=== PATIENT | male | born 1985 | race Caucasian/White ===

== ENCOUNTER → 2018-02-13 | Outpatient (REF) | payer OTHER ==
[~2018-02-13] MED LIST: AMOX875T2 PO; CLEO150C PO; CLIN150C14 PO; IBUP1TAB6 PO; OXYC15TA76 PO; PERCOCET PO
== END ==
LOC: M LAB REF 10:29
DX: J02.9 Acute pharyngitis, unspecified (principal)

== ENCOUNTER 2018-02-15 02:03 | Inpatient (IN) | payer OTHER ==
[2018-02-15] MEDS ORDERED: ONDANSETRON 4MG/2ML VIAL (J2405) IV (02:15)
[2018-02-15 03:15] LABS: BASO % 0.3 % (0.0-1.0); EOS % 0.2 % (0.0-3.0); HEMATOCRIT 36.4 % (42.0-52.0); HEMOGLOBIN 12.1 g/dl (13.5-17.5); IMMATURE GRANULOCYTE % 0.3 % (0-3.0); LYMPH # 0.8 10^3/uL (1.5-4.5); LYMPH % 6.7 % (24.0-44.0); MEAN CORPUSCULAR HEMOGLOBIN 27.8 pg (27.0-33.0); MEAN CORPUSCULAR HGB CONC 33.2 g/dl (32.0-36.5); MEAN CORPUSCULAR VOLUME 83.7 fl (80.0-96.0); MONO # 0.7 10^3/uL (0.0-0.8); MONO % 5.9 % (0.0-5.0); NEUTROPHILS # 10.4 10^3/uL (1.8-7.7); NEUTROPHILS % 86.6 % (36.0-66.0); PLATELET COUNT, AUTOMATED 164 10^3/uL (150-450); RED BLOOD COUNT 4.35 10^6/uL (4.30-6.10); RED CELL DISTRIBUTION WIDTH 12.7 % (11.5-14.5)
[2018-02-15 03:35] LABS: C REACTIVE PROTEIN QUANTITATIV 6.59 MG/DL (0.00-0.30)
[2018-02-15 03:43] LABS: ERYTHROCYTE SEDIMENTATION RATE 38 mm/hr (0-15)
[2018-02-15] MEDS ORDERED: dexameTHASONE 20 MG/5 ML VIAL (J1100) IV (04:00)
[2018-02-15 04:02] LABS: ALBUMIN/GLOBULIN RATIO 1.25 (1.00-1.93); ALKALINE PHOSPHATASE 87 U/L (45-117); ALT/SGPT 20 U/L (12-78); ANION GAP 8 MEQ/L (8-16); AST/SGOT 26 U/L (7-37); BILIRUBIN,TOTAL 0.8 MG/DL (0.2-1.0); BLOOD UREA NITROGEN 9 MG/DL (7-18); CALCIUM LEVEL 8.6 MG/DL (8.5-10.1); CARBON DIOXIDE LEVEL 28 MEQ/L (21-32); CHLORIDE LEVEL 103 MEQ/L (98-107); CREATININE FOR GFR 1.09 MG/DL (0.70-1.30); GLOMERULAR FILTRATION RATE > 60.0 (>60); GLUCOSE, FASTING 101 MG/DL (70-100); POTASSIUM SERUM 3.8 MEQ/L (3.5-5.1); SODIUM LEVEL 139 MEQ/L (136-145); TOTAL PROTEIN 7.2 GM/DL (6.4-8.2)
[2018-02-15] MEDS: NS 1,000 ML IV ×3 (05:37→23:31)
[2018-02-15] MEDS: CLINDAMYCIN 900 MG in APPROPRIATE DILUENT 1 EA IV ×3 (05:38→20:08)
[2018-02-15] MEDS: ACETAMINOPHEN TAB 650MG DOSE (2X325MG) PO (05:39)
[2018-02-15] MEDS: HEPARIN SOD (PORCINE) 5000 UNITS/ML VIAL SC ×3 (06:21→20:08)
[2018-02-15] MEDS: dexameTHASONE 20 MG/5 ML VIAL (J1100) IV ×2 (06:52→17:35)
[2018-02-15] MEDS: IBUPROFEN 600 MG TAB PO (07:56)
[2018-02-16] MEDS: CLINDAMYCIN 900 MG in APPROPRIATE DILUENT 1 EA IV ×2 (03:22→12:00)
[2018-02-16] MEDS: HEPARIN SOD (PORCINE) 5000 UNITS/ML VIAL SC ×2 (05:03→13:32)
[2018-02-16] MEDS: dexameTHASONE 20 MG/5 ML VIAL (J1100) IV (05:03)
[2018-02-16 05:47] LABS: HEMATOCRIT 33.7 % (42.0-52.0); HEMOGLOBIN 11.3 g/dl (13.5-17.5); MEAN CORPUSCULAR HEMOGLOBIN 27.8 pg (27.0-33.0); MEAN CORPUSCULAR HGB CONC 33.5 g/dl (32.0-36.5); MEAN CORPUSCULAR VOLUME 82.8 fl (80.0-96.0); PLATELET COUNT, AUTOMATED 171 10^3/uL (150-450); RED BLOOD COUNT 4.07 10^6/uL (4.30-6.10); RED CELL DISTRIBUTION WIDTH 12.5 % (11.5-14.5); WHITE BLOOD COUNT 12.7 10^3/uL (4.0-10.0)
[2018-02-16 06:04] LABS: ANION GAP 7 MEQ/L (8-16); BLOOD UREA NITROGEN 15 MG/DL (7-18); C REACTIVE PROTEIN QUANTITATIV 9.46 MG/DL (0.00-0.30); CALCIUM LEVEL 8.3 MG/DL (8.5-10.1); CARBON DIOXIDE LEVEL 25 MEQ/L (21-32); CHLORIDE LEVEL 106 MEQ/L (98-107); CREATININE FOR GFR 0.88 MG/DL (0.70-1.30); GLOMERULAR FILTRATION RATE > 60.0 (>60); GLUCOSE, FASTING 130 MG/DL (70-100); MAGNESIUM LEVEL 1.8 MG/DL (1.8-2.4); SODIUM LEVEL 138 MEQ/L (136-145)
[2018-02-16] MEDS: NS 1,000 ML IV (10:36)
[2018-02-16] MEDS ORDERED: CLINDAMYCIN 150 MG CAP PO ×2 (21:00)
== END 2018-02-16 15:55 | disposition home or self-care (01) | DRG 153 ==
LOC: M ED 02:03 → M ED INP 02:11 → M PED 05:20 → M MSPAV 14:45
PROVIDERS: Internal Medicine
DX: J36 Peritonsillar abscess (principal)

== ENCOUNTER 2018-02-19 12:19 | Day surgery (SDC) | payer OTHER ==
[~2018-02-19] VITALS: Ht 170.2 cm; Wt 65.9 kg
[2018-02-19] VITALS (7 sets, daily range): BP systolic 108–123; BP diastolic 55–70
[~2018-02-19 12:19] MED LIST changes: -AMOX875T2 PO; -CLIN150C14 PO; -IBUP1TAB6 PO; -OXYC15TA76 PO; -PERCOCET PO
[2018-02-19] MEDS ORDERED: NS 1,000 ML IV SCH (12:53)
[2018-02-19] MEDS ORDERED: dexameTHASONE 20 MG/5 ML VIAL (J1100) IV ONE (13:00)
[2018-02-19 13:31] LABS: BASO % 0.2 % (0.0-1.0); EOS % 0.2 % (0.0-3.0); HEMATOCRIT 38.7 % (42.0-52.0); HEMOGLOBIN 13.2 g/dl (13.5-17.5); LYMPH % 7.5 % (24.0-44.0); MEAN CORPUSCULAR HEMOGLOBIN 28.1 pg (27.0-33.0); MEAN CORPUSCULAR HGB CONC 34.1 g/dl (32.0-36.5); MEAN CORPUSCULAR VOLUME 82.3 fl (80.0-96.0); MONO # 0.9 10^3/uL (0.0-0.8); MONO % 6.8 % (0.0-5.0); NEUTROPHILS # 10.9 10^3/uL (1.8-7.7); PLATELET COUNT, AUTOMATED 255 10^3/uL (150-450); WHITE BLOOD COUNT 12.8 10^3/uL (4.0-10.0)
[2018-02-19] MEDS ORDERED: ISOVUE-370 76% 100ML VIAL (Q9967) As Ordered ONE (13:31)
[2018-02-19 13:41] LABS: INR 1.05; PROTHROMBIN TIME 13.8 SECONDS (12.1-14.4)
[2018-02-19 13:55] LABS: ALT/SGPT 58 U/L (12-78); BILIRUBIN,DIRECT 0.1 MG/DL (0.0-0.2); BILIRUBIN,TOTAL 0.6 MG/DL (0.2-1.0); BLOOD UREA NITROGEN 11 MG/DL (7-18); CALCIUM LEVEL 8.9 MG/DL (8.5-10.1); CARBON DIOXIDE LEVEL 29 MEQ/L (21-32); CHLORIDE LEVEL 99 MEQ/L (98-107); CREATININE FOR GFR 1.03 MG/DL (0.70-1.30); GLOMERULAR FILTRATION RATE > 60.0 (>60); GLUCOSE, FASTING 97 MG/DL (70-100); POTASSIUM SERUM 4.1 MEQ/L (3.5-5.1); SODIUM LEVEL 136 MEQ/L (136-145); TOTAL PROTEIN 7.7 GM/DL (6.4-8.2)
[2018-02-19] MEDS ORDERED: CLIN150C14 PO (15:13)
--- NOTE | 2018-02-19 15:14 | REP ---
Soft-tissue neck CT with IV contrast: History: Swelling. Comparison study is from February 14, 2018 done at [facility]. CT contrast dose: 75 ml of intravenous Isovue 370. CT findings: Preliminary digital associate sales radiograph is unremarkable. There is a fairly large left peritonsillar low density area surrounded by contrast enhancement on today's CT. This has increased in size when compared with the CT study done February 14, 2018 and is consistent with a left peritonsillar abscess. The low density area measures 3.1 cm in anteroposterior span by 1.5 cm in medial to lateral dimension by 3.6 cm in oblique craniocaudal span. The hypopharynx is displaced to the right and mildly narrowed. The swelling extends into the level of the vallecula on the left side. The left aryepiglottic fold is edematous and enlarged. No glottic or subglottic airway narrowing is seen. No evidence of adenopathy. No bony destructive lesion. Impression: Findings consistent with enlarging left peritonsillar abscess, 3.1 x 1.5 x 3.6 cm. Electronically Signed by Ankit Price MD 02/19/2018 04:18 P
[2018-02-19] MEDS ORDERED: CLINDAMYCIN 600 MG in APPROPRIATE DILUENT 1 EA IV ONE (15:15)
[2018-02-19] MEDS ORDERED: dexameTHASONE 4 MG/ML 1ML VIAL (J1100) As Ordered ONE (15:21)
[2018-02-19] MEDS ORDERED: PROPOFOL 200 MG/20 ML VIAL As Ordered ONE ×2 (15:21→16:06)
[2018-02-19] MEDS ORDERED: ONDANSETRON 4MG/2ML VIAL (J2405) As Ordered ONE ×2 (15:21→17:03)
[2018-02-19] MEDS ORDERED: ROCURONIUM BROMIDE 50 MG/5 ML VIAL As Ordered ONE ×2 (15:21→16:06)
[2018-02-19] MEDS ORDERED: LIDOCAINE 2% INJ 100 MG/5 ML SDV (FOR ANES.) As Ordered ONE (15:21)
[2018-02-19] MEDS ORDERED: LIDOCAINE W/EPINEPHRINE 1% 20ML VIAL As Ordered ONE (15:50)
[2018-02-19] MEDS ORDERED: CLINDAMYCIN INJ 900MG/6ML VIAL As Ordered ONE (15:50)
[2018-02-19] MEDS ORDERED: OXYMETAZOLINE NASAL SPRAY (AFRIN) As Ordered ONE (15:54)
[2018-02-19] MEDS ORDERED: IBUP1TAB6 PO (16:02)
[2018-02-19] MEDS ORDERED: LIDOCAINE 2% INJ 100 MG/5 ML SYRINGE As Ordered ONE (16:06)
[2018-02-19] MEDS ORDERED: MIDAZOLAM INJ 2 MG/2 ML VIAL (J2250) As Ordered ONE (16:06)
[2018-02-19] MEDS ORDERED: SUCCINYLCHOLINE 100 MG/5 ML SYRINGE (J0330) As Ordered ONE (16:06)
[2018-02-19] MEDS ORDERED: fentaNYL 100 MCG/2 ML INJECTION (J3010) As Ordered ONE ×2 (16:06→16:25)
[2018-02-19] MEDS ORDERED: PERCOCET 5MG/325MG TAB PO PRN ×2 (17:15→17:30)
[2018-02-19] MEDS ORDERED: fentaNYL 100 MCG/2 ML INJECTION (J3010) IV PRN (17:15)
[2018-02-19] MEDS ORDERED: ONDANSETRON 4MG/2ML VIAL (J2405) IV PRN ×2 (17:15→17:30)
[2018-02-19] MEDS ORDERED: LR 1,000 ML IV SCH (17:15)
[2018-02-19] MEDS: LR 1,000 ML IV SCH (17:15)
[2018-02-19] MEDS ORDERED: IBUPROFEN 100 MG/5 ML SUSP UDC DYE FREE PO PRN (17:30)
[2018-02-19] MEDS ORDERED: MORPHINE 4 MG/ML 1ML VIAL/SYRINGE (J2270) IV PRN (17:30)
[2018-02-19] MEDS: AMPICILLIN SOD/SULBACTAM SOD 3 GM in D5W MINI-BAG PLUS 100 ML IV SCH ×2 (18:55→23:27)
[2018-02-19] MEDS: dexameTHASONE 4 MG/ML 1ML VIAL (J1100) IV SCH (23:27)
[2018-02-20] MEDS: LR 1,000 ML IV SCH (03:15)
[2018-02-20 03:30] VITALS: BP 118/62
[2018-02-20] MEDS: dexameTHASONE 4 MG/ML 1ML VIAL (J1100) IV SCH (06:14)
[2018-02-20] MEDS: AMPICILLIN SOD/SULBACTAM SOD 3 GM in D5W MINI-BAG PLUS 100 ML IV SCH (06:14)
[2018-02-20 08:00] VITALS: BP 139/75
[2018-02-20] MEDS ORDERED: AMOX875T2 PO (09:42)
[2018-02-20] MEDS ORDERED: PERCOCET PO (09:48)
[2018-02-20] MEDS ORDERED: OXYC15TA76 PO (09:52)
--- NOTE | 2018-02-20 10:16 | DS.PDOC ---
Discharge Summary General Date of Admission 02/19/18 Date of Discharge 02/20/18 Attending Physician: ABRAHAM MEJIA MD Discharge Summary PROCEDURES PERFORMED DURING STAY: Incision and drainage left tonsil. ADMITTING DIAGNOSES: 1. Left tonsillar abscess DISCHARGE DIAGNOSES: 1. Left tonsillar abscess COMPLICATIONS/CHIEF COMPLAINT: Lt Peritonsillar Abscess. HISTORY OF PRESENT ILLNESS: Patient was recently discharged from [facility] for left tonsillitis and tonsillar abscess on 02/17/18. Patient was sent home on Clindamycin and to follow up with ENT in a week. He presented to ER 02/19 for worsening symptoms, difficulty talking, swallowing and worsening pain. Patient noted improvement upon discharge, was able to swallow regular foods and pain was manageable. The night before admission he noted had difficulty swallowing even soft foods. The morning of admission reported difficulty talking and could not swallow. Repeat CT showed enlargement of left tonsil. Labs showed similar white count as previous admission, 12.8. He was given IV Decadron in the ER 8 mg times one. Patient was brought to the OR for incision and drainage. HOSPITAL COURSE: Patient had incision and drainage in OR. After patient was started on IV ampicillin/sulbactam. He was continued on IV decadron q8h. Patient noted improvement immediately following incision and drainage. Patient was prescribed oxycodone/aceteminophen and ibuprofen but was not used for pain. Pain control was manageable. Patient was able to eat mechanical soft diet. No nausea or vomiting. No pain swallowing the following morning. Patient did not have fevers or chills. Will be switched from ampicillin/sulbactam to Augmentin 875 mg BID for 10 more days outpatient. He was not continued on Clindamycin since patient worsened with that antibiotic. Patient will follow up with ENT and PCP in 1 week. Abscess was cultured and results will need to be followed up outpatient. DISCHARGE MEDICATIONS: Please see below. ALLERGIES: Please see below. PHYSICAL EXAMINATION ON DISCHARGE: VITAL SIGNS: Please see below. GENERAL: Comfortable, cooperative. HEENT: Nares patent. Left tonsil erythema and some pus. Swelling decreased. Uvula midline. NECK: No lymphadenopathy. CARDIOVASCULAR EXAMINATION: Normal s1, s2. no murmurs. Vascular: Radial pulse 2/4 bilaterally. LABORATORY DATA: Please see below. IMAGING: Neck CT Findings consistent with enlarging left peritonsillar abscess, 3.1 x 1.5 x 3.6 cm. PROGNOSIS: Stable. ACTIVITY: As tolerated DIET: Soft mechanical DISCHARGE PLAN: Home DISPOSITION: Stable DISCHARGE INSTRUCTIONS: 1. Follow up with ENT in 1 week 2. Follow up with PCP in 1 week 3. Augmentin 875 mg BID for 10 days. 4. Ibuprofen or oxycodone/acetaminophen 5/325 mg as needed for pain ITEMS TO FOLLOWUP ON ON OUTPATIENT: 1. Gram stain, abscess culture, anaerobic culture DISCHARGE CONDITION: Stable TIME SPENT ON DISCHARGE: Greater than 20 minutes. Vital Signs/I&Os Vital Signs Date Time Temp Pulse Resp B/P (MAP) Pulse Ox O2 Delivery O2 Flow Rate FiO2 02/20/18 03:30 99.1 74 16 118/62 (80) 96 Room Air I&O- Last 24 Hours up to 6 AM 02/20/18 06:00 Intake Total 2950 ml Output Total 1105 ml Balance 1845 ml Laboratory Data Labs 24H Laboratory Tests 2 02/19/18 13:21: Immature Granulocyte % (Auto) 0.3, White Blood Count 12.8H, Red Blood Count 4. 70, Hemoglobin 13.2L, Hematocrit 38.7L, Mean Corpuscular Volume 82.3, Mean Corpuscular Hemoglobin 28.1, Mean Corpuscular Hemoglobin Concent 34.1, Red Cell Distribution Width 12.4, Platelet Count 255, Neutrophils (%) (Auto) 85.0H, Lymphocytes (%) (Auto) 7.5L, Monocytes (%) (Auto) 6.8H, Eosinophils (%) (Auto) 0.2, Basophils (%) (Auto) 0.2, Neutrophils # (Auto) 10.9H, Lymphocytes # (Auto) 1.0L, Monocytes # (Auto) 0.9H, Eosinophils # (Auto) 0.0, Basophils # (Auto) 0.0, Nucleated Red Blood Cells % (auto) 0.0, Prothrombin Time 13.8, Prothromb Time International Ratio 1.05, Anion Gap 8, Glomerular Filtration Rate > 60.0, Calcium Level 8.9, Aspartate Amino Transf (AST/SGOT) 27, Alanine Aminotransfer ase (ALT/SGPT) 58, Alkaline Phosphatase 104, Total Bilirubin 0.6, Direct Bilirubin 0.1, Total Protein 7.7, Albumin 4.0, Albumin/Globulin Ratio 1.08 CBC/BMP Laboratory Tests 02/19/18 13:21 Red Blood Count 4.70, Mean Corpuscular Volume 82.3, Mean Corpuscular Hemoglobin 28.1, Mean Corpuscular Hemoglobin Concent 34.1, Red Cell Distribution Width 12.4, Neutrophils (%) (Auto) 85.0 H, Lymphocytes (%) (Auto) 7.5 L, Monocytes (%) (Auto) 6.8 H, Eosinophils (%) (Auto) 0.2, Basophils (%) (Auto) 0.2, Neutrophils # (Auto) 10.9 H, Lymphocytes # (Auto) 1.0 L, Monocytes # (Auto) 0.9 H, E osinophils # (Auto) 0.0, Basophils # (Auto) 0.0 Microbiology Microbiology 02/19/18 Gram Stain - Final, Resulted 02/19/18 Abscess Culture, Resulted Pending 02/19/18 Anaerobic Culture, Resulted Pending Discharge Medications Scheduled Amoxicillin/Clavulanate Potas (Amoxicillin/Clavulanate P 875-125 mg) 1 Tab Tab, 875 MG PO BID Scheduled PRN Ibuprofen (Ibuprofen) 600 Mg Tab, 600 MG PO Q6H PRN for PAIN, (Reported) Oxycodone/Acetaminophen (Percocet 5MG/325MG Tablet) 1 Tab Tab, 1 TAB PO Q6H PRN for PAIN Allergies Coded Allergies: No Known Allergies (Unverified , 02/15/18) GME ATTESTATION GME ATTESTATION My faculty preceptor for this patient encounter was physically present during the encounter and was fully available. All aspects of the patient interview, examination, medical decision making process, and medical care plan development were reviewed and approved by the faculty preceptor. The faculty preceptor is aware and concurs with the plan as stated in the body of this note and will attest to such by his/her cosignature. STEPHANIE ESTRADA DO Feb 20, 2018 10:06
--- NOTE | 2018-02-24 09:02 | RO ---
DATE OF PROCEDURE: 02/19/2018 PREPROCEDURE DIAGNOSIS: Left peritonsillar abscess. POSTPROCEDURE DIAGNOSIS: Left peritonsillar abscess. PROCEDURE: Incision and drainage of the left peritonsillar abscess. SURGEON: Dr. Skip Cedillo. GRADES 9 THRU 12 VISITING TEACHER: ANESTHESIA: General. CLINICAL PREAMBLE: This 32-year-old man presented to the emergency department (ED) today complaining of worsening of swallowing for the past 12 hours despite being on oral clindamycin for treatment of the left peritonsillar cellulitis. He also complains of increasing difficulty with breathing. Physical examination revealed erythematous and edematous soft palate on the left side as well as the left peritonsillar region. CT scan confirmed the presence of a 3 x 1.5 cm left peritonsillar abscess. Management options including urgent incision and drainage done in the operating room have been discussed with the patient. He understood and consented to the procedure. DESCRIPTION OF PROCEDURE: Patient was identified in the preoperative holding area and brought to the operating room in stable condition. In the supine position on the operating table, patient received general anesthesia followed by orotracheal intubation without incident by the anesthesiology team. Patient was prepped and draped in the usual fashion for the procedure. The Asher-Arnold mouth gag was inserted and suspended. The superior pole of the left tonsil was infiltrated with 10% lidocaine with 1:100,000 epinephrine. Mucosal incision was made using the #12 blade. Using the Schnitz forceps, the left tonsil capsule was identified and entered. Copious amounts of creamy abscess was drained. Cultures were obtained for culture and sensitivity, Gram stain, and anerobic cultures. Approximately 10 mL of abscess was drained. The dissection was then carried along the tonsil capsule to ensure drainage from the different potential loculated side of the left paratonsillar abscess. The left paratonsillar region was then copiously irrigated using warm saline solution. Hemostasis observed at the end of the case. Estimated blood loss was approximately 5 mL. Sponge and instrument counts were correct at the end of the procedure. No complication was encountered. General anesthesia was reversed and patient was extubated and brought to the recovery room in stable condition. EDENILSON
--- NOTE | 2018-02-25 15:13 | HPE ---
DATE OF ADMISSION: 02/19/2018 CHIEF COMPLAINT: Sore throat, difficulty swallowing and difficulty talking. HISTORY OF PRESENT ILLNESS: Patient is a 32-year-old male with presented to the emergency department after being discharged on [place] for peritonsillar abscess. Patient has been taking clindamycin twice a day for the last several days. He had noted improvement and on discharge he was able to swallow and talk, however starting last night the patient was not able to swallow any regular food and even soft food. Overnight he stopped being able to talk regularly. He describes the pain as stabbing and points from left throat to left ear. He denies any fever or vomiting. Was not sent home on oral steroids and has not been taking any since discharge. No other symptoms such as headache or ear fullness or eye discomfort. No other changes since being home. No injury. REVIEW OF SYSTEMS: Noncontributory. PAST MEDICAL HISTORY: Had some wisdom teeth removed 1-2 years ago. PAST SURGICAL HISTORY: [place] teeth removal times four. SOCIAL HISTORY: Patient is a nonsmoker and uses occasional alcohol. He works at [employer]. FAMILY HISTORY: Noncontributory. ALLERGIES: No allergies, no drug allergies. MEDICATIONS: Clindamycin and Ibuprofen for pain. PHYSICAL EXAMINATION: HEENT: Ears are normal. External, auditory canal visible, Tympanic membrane visible bilaterally. No bulging or perforation. Naris is patent. Tongue is mobile. No lesions noted in the oral cavity. Oropharynx shows edema with left tonsil erythema. No exudate noted on tonsil. Posterior pharyngeal wall visualized and no drainage. NECK: Trachea is midline. Swelling noted, submandibular triangle. Pain to palpation of left carotid. No other lymph nodes palpated. HEART: Normal S1, S2 no murmurs. LUNGS: Clear to auscultation. No wheezing. LABS: White count 12.8. VITALS: Temperature 100.4. ASSESSMENT: 32-year-old male who presents with peritonsillar abscess. PLAN: The plan is to bring him to the operating room at this time for incision and drainage. Consider changing patient's antibiotics from clindamycin to more broad spectrum. Continue IV fluids and nothing by mouth at this time. Continue IV steroids. CT scan did show evidence of enlargement of tonsil and abscess possible. Recommend soft diet, encourage oral intake. Pain medication as needed. Admit to hospital at this time. Observe patient overnight. Consider discharge tomorrow morning pending oral intake, no bleeding, and pain control. GME Attestation: My faculty preceptor for this patient encounter was physically present during the encounter and was fully available. All aspects of the patient interview, examination, medical decision making process, and medical care plan development were reviewed and approved by the faculty preceptor. The faculty preceptor is aware and concurs with the plan as stated in the body of this note and will attest to such by his/her co signature. EDENILSON
== END 2018-02-20 12:10 | disposition home or self-care (01) ==
LOC: M ED 12:19 → M SDC 15:30 → M PED 18:25 → M SDC 02-20 12:10
PROVIDERS: ATTEND Otolaryngology
DX: J36 Peritonsillar abscess (principal)
CPT/HCPCS: 42700; 70491; 80048; 80076; 85025; 85610; 87070; 87075; 87205; 94760; 96374; 96375; 96376; 99284; J0330; J1100; J2250; J2405; J3010; Q9967

== ENCOUNTER 2018-05-06 08:16 | Day surgery (SDC) | payer OTHER ==
[~2018-05-06] VITALS: Ht 170.2 cm; Wt 67.6 kg
[~2018-05-06 08:16] MED LIST changes: +AMOX875T2 PO; +CLIN150C14 PO; +IBUP1TAB6 PO; +LR 1,000 ML IV ONE; +OXYC15TA76 PO; +PERCOCET PO
[2018-05-06] MEDS ORDERED: dexameTHASONE 4 MG/ML 1ML VIAL (J1100) As Ordered ONE (08:56)
[2018-05-06] MEDS ORDERED: OXYMETAZOLINE NASAL SPRAY (AFRIN) As Ordered ONE (10:06)
[2018-05-06] MEDS ORDERED: PROPOFOL 200 MG/20 ML VIAL As Ordered ONE (10:32)
[2018-05-06] MEDS ORDERED: LIDOCAINE 2% INJ 100 MG/5 ML SDV (FOR ANES.) As Ordered ONE (10:32)
[2018-05-06] MEDS ORDERED: ROCURONIUM BROMIDE 50 MG/5 ML VIAL As Ordered ONE (10:32)
[2018-05-06] MEDS ORDERED: fentaNYL 100 MCG/2 ML INJECTION (J3010) As Ordered ONE (10:32)
[2018-05-06] MEDS ORDERED: MIDAZOLAM INJ 2 MG/2 ML VIAL (J2250) As Ordered ONE (10:32)
[2018-05-06] MEDS ORDERED: SUCCINYLCHOLINE 100 MG/5 ML SYRINGE (J0330) As Ordered ONE (10:33)
[2018-05-06] MEDS ORDERED: ACETAMINOPHEN 1000MG 100ML IV BTL (OFIRMEV) (J0131 PER 10MG) As Ordered ONE (10:33)
[2018-05-06] MEDS ORDERED: ONDANSETRON 4MG/2ML VIAL (J2405) As Ordered ONE (10:51)
[2018-05-06] MEDS ORDERED: oxyCODONE 5MG TAB PO PRN (11:30)
[2018-05-06] MEDS ORDERED: fentaNYL 100 MCG/2 ML INJECTION (J3010) IV PRN (11:30)
[2018-05-06] MEDS ORDERED: ONDANSETRON 4MG/2ML VIAL (J2405) IV PRN (11:30)
[2018-05-06] MEDS ORDERED: LR 1,000 ML IV SCH ×2 (11:30)
[2018-05-06 12:14] VITALS: BP 110/82
[2018-05-06] MEDS ORDERED: IBUPROFEN 100 MG/5 ML SUSP UDC DYE FREE PO ONE (12:15)
[2018-05-06] MEDS ORDERED: IBUPROFEN 600 MG TAB PO ONE (12:15)
--- NOTE | 2018-05-06 15:25 | RO ---
DATE OF PROCEDURE: 05/06/2018 PREPROCEDURE DIAGNOSIS: Recurrent peritonsillar abscess POSTPROCEDURE DIAGNOSIS: Recurrent peritonsillar abscess. PROCEDURE PERFORMED: Tonsillectomy. SURGEON: Skip Cedillo MD SHREDDER TENDER PEAT: ANESTHESIA: General. CLINICAL PREAMBLE: This 32-year-old male has had two prior episodes of peritonsillar abscess involving the left tonsil area. The last episode of the peritonsillar abscess occurred in January 2018. He is recovered from the last episode of the peritonsillar abscess at this time. Management options, including tonsillectomy have been discussed. The patient understood and consented to the procedure. DESCRIPTION OF PROCEDURE: Patient was identified in preoperative holding and brought to the operating room in stable condition. In supine position on the operating table, patient received general anesthesia followed by orotracheal intubation without incident. Patient was prepped and draped in the usual fashion for the procedure. The Asher-Arnold mouth gag was inserted and suspended. The right tonsil was medialized using curved Allis forceps. Mucosal incision was made over the superior pole of the right tonsil using the Coblator wand set at 7 for Coblation. The tonsillar capsule was identified, and dissection was carried out along this plane to excise the right tonsil. The left tonsil was then similarly dissected out. At the end of the procedure, both tonsil beds were free of bleeding. Estimated blood loss was less than 10 mL. No complication was encountered. Sponge and instruments counts were correct at the end of the procedure. General anesthesia was reversed, and patient was extubated and brought to the recovery room in stable condition. Intraoperative findings: Sclerotic left tonsil capsule.
== END 2018-05-06 12:35 | disposition home or self-care (01) ==
LOC: M SDC 08:16
PROVIDERS: ATTEND Otolaryngology
DX: J36 Peritonsillar abscess (principal)
CPT/HCPCS: 42826; 88302; J0131; J0330; J2250; J2405; J3010